=== PATIENT | male | born 1995 ===

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

== ENCOUNTER 2018-09-23 01:28 | Emergency (ER) | payer MEDICAID, OTHER ==
[2018-09-23 01:28] VITALS: BMI 17.3
[2018-09-23 01:45] VITALS: TEMP 97.7
[2018-09-23 02:17] LABS: BASO % 0.2 % (0.0-2.0); EOS # 0.1 K/uL (0.0-0.7); EOS % 1.8 % (0.0-4.0); HEMOGLOBIN 14.8 g/dL (12.0-18.0); LYMPH % 35.7 % (20.0-40.0); MEAN CELL VOLUME 80.7 fL (80.0-94.0); MEAN CORPUSCULAR HEMOGLOBIN 27.8 pg (27.0-31.0); MEAN CORPUSCULAR HGB CONC 34.4 g/dL (33.0-37.0); MEAN PLATELET VOLUME 9.1 fL (7.2-11.7); MONO # 0.5 K/uL (0.0-0.8); MONO % 8.5 % (0.0-10.0); NEUT # 3.1 K/uL (1.8-7.0); NEUT % 53.8 % (50.0-75.0); RBC 5.34 Mil/uL (4.40-5.90); RED CELL DISTRIBUTION WIDTH 13.1 % (11.5-14.5); WHITE BLOOD COUNT 5.7 K/uL (4.8-10.8)
[2018-09-23 02:24] LABS: SQUAMOUS EPITHIAL < 1 /hpf (0-5); URINE BILIRUBIN NEGATIVE (NEGATIVE); URINE BLOOD NEGATIVE (NEGATIVE); URINE CLARITY Clear (Clear); URINE COLOR Yellow (YELLOW); URINE GLUCOSE (UA) NORMAL (Normal); URINE LEUKOCYTE ESTERASE NEG Leu/uL (Negative); URINE PROTEIN NEGATIVE (NEGATIVE)
--- NOTE | 2018-09-23 02:38 | C.PDOC ---
History Of Present Illness 23 year old male with Hx of Crohn's and asthma not on any medication reports all day today having mild lower abdominal pain which he has felt normally in the past. An hour ago he began having acute lower abdominal pain, started shaking, felt his face and arms go numb, and started staring off in the distance. Patient remembers the shaking and remembers when it stops, states when EMS arrived it stopped. He took ibuprofen for the pain which he states helped the pain go away but reports having some nausea. Denies fever or vomiting. Time Seen by Provider: 09/23/18 01:32 Chief Complaint (Nursing): Abdominal Pain History Per: Patient History/Exam Limitations: no limitations Onset/Duration Of Symptoms: Hrs Current Symptoms Are (Timing): Still Present Location Of Pain/Discomfort: LLQ Quality Of Discomfort: Unable To Describe Associated Symptoms: Nausea. denies: Fever, Vomiting Exacerbating Factors: None Alleviating Factors: None Recent travel outside of the [place]: No Past Medical History Reviewed: Historical Data, Nursing Documentation, Vital Signs Vital Signs: Last Vital Signs Temp 97.7 F 09/23/18 01:36 Pulse 65 09/23/18 01:36 Resp 20 09/23/18 01:36 BP 108/74 09/23/18 01:36 Pulse Ox 96 09/23/18 01:36 Primary Care Provider: FAMILY PROVIDER,NO - Medical History PMH: Asthma, Crohn's Disease, Gastritis Surgical History: Endoscopy - [facility] Procedures APPLICATION OF SPLINT (11/07/13) ESOPHAGOGASTRODUODENOSCOPY [EGD] W/CLOSED BIOPSY (06/16/14) Family History: States: Unknown Family Hx - Social History Hx Tobacco Use: No Hx Alcohol Use: No Hx Substance Use: No - Immunization History Hx Tetanus Toxoid Vaccination: No Hx Influenza Vaccination: No Hx Pneumococcal Vaccination: No Review Of Systems Constitutional: Negative for: Fever, Chills Cardiovascular: Negative for: Chest Pain, Palpitations Respiratory: Negative for: Cough, Shortness of Breath Gastrointestinal: Positive for: Nausea, Abdominal Pain Genitourinary: Negative for: Dysuria, Hematuria Musculoskeletal: Negative for: Back Pain Neurological: Negative for: Weakness, Numbness Physical Exam - Physical Exam Appears: Well, Non-toxic, No Acute Distress, Other (Well hydrated) Skin: Normal Color, Warm, No Diaphoretic Head: Atraumatic, Normacephalic Eye(s): bilateral: Normal Inspection Oral Mucosa: Moist Neck: Trachea Midline, Supple Cardiovascular: Rhythm Regular Respiratory: Normal Breath Sounds, No Accessory Muscle Use, No Other (Normal inspiratory effort) Gastrointestinal/Abdominal: Soft, Tenderness (LLQ on palpation), Guarding, No Rebound Back: No CVA Tenderness Neurological/Psych: Oriented x3, Normal Speech, Other (No shaking) ED Course And Treatment - Laboratory Results Result Diagrams: 09/23/18 02:12 09/23/18 02:12 O2 Sat by Pulse Oximetry: 96 (Room air) Pulse Ox Interpretation: Normal Medical Decision Making Medical Decision Making: Zofran and labs ordered. This patient appears to have had an anxiety attack just prior to arrival most likely brought on by his underlying crohn's. he was tolerating po intake at thime of discharge. he remains afebrile. 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 - Scribe Statement The provider has reviewed the documentation as recorded by the Scribe Garry Auguste All medical record entries made by the Scribe were at my direction and personally dictated by me. I have reviewed the chart and agree that the record accurately reflects my personal performance of the history, physical exam, medical decision making, and the department course for this patient. I have also personally directed, reviewed, and agree with the discharge instructions and disposition.
[2018-09-23 02:45] LABS: ALB/GLOB RATIO 1.2 (1.0-2.1); ALBUMIN 4.6 g/dL (3.5-5.0); ALT/SGPT 14 U/L (21-72); AST/SGOT 27 U/L (17-59); BLOOD UREA NITROGEN 11 mg/dL (9-20); CALCIUM 9.5 mg/dl (8.6-10.4); GFR NON-AFRICAN AMERICAN > 60; LIPASE 190 U/L (23-300)
[2018-09-23 03:30] VITALS: BP 123/77; PULSE 59; RESP 18; O2SAT 97
== END 2018-09-23 03:40 | disposition home or self-care (01) ==
LOC: C.ER 01:28
DX: K50.90 Crohn's disease, unspecified, without complications (principal); F41.0 Panic disorder [episodic paroxysmal anxiety]
CPT/HCPCS: 80053; 81001; 83690; 85025; 96374; 99284; J2405